=== PATIENT | female | born 1950 | race African-American/Black ===

== ENCOUNTER 2018-05-15 10:25 | Day surgery (SDC) | payer OTHER ==
[2018-05-12 13:38] LABS: Absolute Lymphocytes (CBC) 2.2 K/uL (0.7-4.9); Absolute Monocytes 0.6 K/uL (0.1-1.3); Absolute Neutrophil 5.2 K/uL (1.8-8.0); Basophils % 0.8 % (0-1.3); Eosinophils % 0.5 % (0-4.4); Hematocrit 35.4 % (36.0-45.0); Lymphocytes % 26.8 % (15.3-44.8); MCH 26.9 pg (27.0-35.0); MCV 82.1 fL (80-100); MPV 7.3 fL (7.6-11.3); Monocytes % 7.7 % (3.3-12.3); RBC Red Blood Cell Count 4.32 M/uL (3.86-4.86)
[2018-05-12 13:49] LABS: Potassium 3.9 mmol/L (3.5-5.1)
--- NOTE | 2018-05-12 13:55 | RAD REPORT ---
EXAM DESCRIPTION: RADKhushboot Pa And Lat (2 Views)05/12/2018 1:38 pm CLINICAL HISTORY: Hypertension/preop COMPARISON: None FINDINGS: Extensive bilateral interstitial lung opacities are present. The heart is mildly enlarged. IMPRESSION: Extensive bilateral interstitial lung opacities probably are chronic representing pulmon janie fibrosis. A superimposed acute interstitial process such as pneumonitis/atypical pneumonia could be present.
--- NOTE | 2018-05-13 10:58 | EKG ---
Test Date: 2018-05-12 Test Time: 13:25:19 Metal Burrer: SANDRA MEASUREMENT RESULTS: Intervals: Rate: 65 MI: 150 QRSD: 72 QT: 436 QTc: 453 Filley: P: 60 MI: 150 QRS: 52 T: 42 INTERPRETIVE STATEMENTS: Normal sinus rhythm Normal ECG No previous ECG available for comparison Electronically Signed On 05-13-18 10:55:42 CDT by [place]
[2018-05-15] MEDS ORDERED: CEFAZOLIN/SWI 1gm 1 GM/10 ML SYR ONE (11:06)
[2018-05-15] MEDS ORDERED: Ringers Lactate 1,000 ML IV ONE (11:06)
[2018-05-15] MEDS ORDERED: LIDOCAINE 2% MPF 5 ML VIAL ONE (12:07)
[2018-05-15] MEDS ORDERED: PROPOFOL 200 MG/20 ML VIAL IV ONE (12:07)
[2018-05-15] MEDS ORDERED: MIDAZOLAM HCL 2 MG/2 ML INJ ONE (12:07)
[2018-05-15] MEDS ORDERED: FENTANYL CITR 100 MCG/2 ML ONE (12:07)
[2018-05-15] MEDS ORDERED: KETOROLAC 30 MG/ML INJ ONE (12:07)
[2018-05-15] MEDS ORDERED: ONDANSETRON HCL 40 MG/20 ML VIAL ONE (12:50)
--- NOTE | 2018-05-15 12:55 | P.BOP ---
Preoperative diagnosis: left second finger cellulitis / abscess, scleroderma Postoperative diagnosis: same Primary procedure: Incision and drainage of left second finger abscess Estimated blood loss: <2cc Specimen: pus culture Findings: abscess Anesthesia: General Transferred to: Recovery Room Condition: Good
--- NOTE | 2018-05-15 23:54 | DS ---
Date of Discharge: 05/15/2018 Diagnoses: Left second finger cellulitis, abscess, and scleroderma. Procedure: Incision and drainage of left second finger abscess. Disposition: Home. Activity: As tolerated. No heavy lifting. Followup: Follow up in my office in 1 week. Call for appointment [phone]. Keep the area dry. ___ clean the area running water and soap and water but did not put it in dirty water. She understood. Medications: Tylenol No.3 q.4 hours p.r.n. pain. OLIVIA/ALOK Voice ID: [id number] Report ID: [id number]
--- NOTE | 2018-05-16 | OP ---
Date of Procedure: 05/15/2018 Surgeon: Kolton Chris MD Preoperative Diagnosis: Left second finger cellulitis, abscess, and scleroderma. Postoperative Diagnosis: Left second finger cellulitis, abscess, and scleroderma. Procedure: Incision and drainage of left second finger abscess about 2 x 1.5 cm. Estimated Blood Loss: Less than 10 cc. Specimen: Pus culture. Finding: Abscess. Anesthesia: General plus local. Indications: This is a case of a 68-year-old patient with history of scleroderma with abscess of the left second finger. The patient has some other nodules, but no infection or abscess on other digits . Just not improving and getting, red, very tender. She did not let me do this in the office or any other place without anesthesia. Since the finger was not improving, we just then booked her in surg lamine with consent obtained for incision and drainage of left finger abscess with benefits, alternative s, and risks including, but not limited to infection, bleeding, damage to adjacent structures, anesth esia complication, nonhealing wound, NE, and even . She also understands this may not relieve h er symptoms. She may need more than one surgical intervention. She understood. Signed a consent. Description Of Procedure: The patient was brought to the operative room, placed in supine position. Anesthesia was done without complication. A time-out was called. The left hand was prepped and allan ped in the usual sterile fashion. Using a sharp knife, after injecting local anesthetic, we proceede d then to cut the necrotic tissue and got into the abscess. The pus was then drained, sent for cultu re. The area was profusely irrigated, and then after that, hemostasis was obtained, and the area was covered with wet-to-dry dressing. The patient tolerated the procedure well. The patient was sent t o recovery room in stable condition. OLIVIA/ALOK Voice ID: [id number] Report ID: [id number]
== END 2018-05-15 15:12 | disposition home or self-care (01) ==
LOC: OR 10:25
PROVIDERS: ATTEND Surgery
PROC: 0H9GXZZ Drainage of Left Hand Skin, External Approach (ICD-10-PCS; principal; 2018-05-15 12:45)
DX: L02.512 Cutaneous abscess of left hand (principal); L03.012 Cellulitis of left finger; M34.9 Systemic sclerosis, unspecified; I10 Essential (primary) hypertension; Z86.73 Personal history of transient ischemic attack (TIA), and cerebral infarction without residual deficits; Z88.6 Allergy status to analgesic agent; Z82.49 Family history of ischemic heart disease and other diseases of the circulatory system
CPT/HCPCS: 26010; 36415; 71046; 80048; 85025; 87070; 87075; 87077; 87186; 87205; 93005; J0690; J2250; J2405; J3010